=== PATIENT | male | born 1980 | race Two or more races ===

== ENCOUNTER 2017-03-03 20:29 | Emergency (ER) | payer MEDICAID ==
[~2017-03-03] VITALS: Ht 180.3 cm; Wt 120.2 kg
[2017-03-03 20:39] VITALS: Ht 180.3 cm; Wt 120.2 kg
[2017-03-04 02:27] LABS: BASOPHIL % 0.2 % (0-2); PLATELET COUNT 207 x10^3mcL (130-400); RED CELL DISTRIBUTION WIDTH 13.1 % (11.5-14.5)
[2017-03-04 02:34] LABS: CALCIUM 8.3 mg/dL (8.5-10.1); CARBON DIOXIDE 28.1 mmol/L (21-32); CHLORIDE SERUM 102 mmol/L (98-107); CREATININE SERUM 0.8 mg/dL (0.7-1.3); GFR1 > 60 mL/min; GLUCOSE SERUM 115 mg/dL (74-106); POTASSIUM SERUM 4.4 mmol/L (3.5-5.1); SODIUM SERUM 139 mmol/L (136-145)
[2017-03-04 02:39] LABS: ALKALINE PHOSPHATASE 83 U/L (46-116); ALT/SGPT 30 U/L (16-63); AST/SGOT 11 U/L (15-37); BILIRUBIN TOTAL 0.28 mg/dL (0.20-1.00); TOTAL PROTEIN, SERUM 7.4 g/dL (6.4-8.2)
[2017-03-04 03:37] VITALS: BP 122/82
== END 2017-03-04 03:37 | disposition home or self-care (01) ==
LOC: ED 20:29
PROVIDERS: Emergency Medicine
DX: S16.1XXA Strain of muscle, fascia and tendon at neck level, initial encounter (principal); S46.911A Strain of unspecified muscle, fascia and tendon at shoulder and upper arm level, right arm, initial encounter; R07.89 Other chest pain; X58.XXXA Exposure to other specified factors, initial encounter; Y93.89 Activity, other specified; Y92.89 Other specified places as the place of occurrence of the external cause; Y99.8 Other external cause status
CPT/HCPCS: 36415; J1170; J1885; Q0162

== ENCOUNTER 2018-04-16 01:49 | Emergency (ER) | payer BC ==
[~2018-04-16] VITALS: Ht 182.9 cm; Wt 104.3 kg
[2018-04-16 01:50] VITALS: Ht 182.9 cm; Wt 104.3 kg
[2018-04-16 02:35] LABS: CALCIUM 8.5 mg/dL (8.5-10.1); CARBON DIOXIDE 29.3 mmol/L (21-32); CHLORIDE SERUM 101 mmol/L (98-107); CREATININE SERUM 1.1 mg/dL (0.7-1.3); GFR1 > 60 mL/min; GLUCOSE SERUM 143 mg/dL (74-106); POTASSIUM SERUM 3.6 mmol/L (3.5-5.1); SODIUM SERUM 140 mmol/L (136-145)
[2018-04-16 02:40] LABS: ALKALINE PHOSPHATASE 73 U/L (46-116); ALT/SGPT 28 U/L (16-63); AST/SGOT 15 U/L (15-37); LIPASE 79 IU/L (73-393); TOTAL PROTEIN, SERUM 7.7 g/dL (6.4-8.2)
[2018-04-16 02:49] LABS: PLATELET COUNT 236 x10^3mcL (130-400); RED CELL DISTRIBUTION WIDTH 12.9 % (11.5-14.5)
[2018-04-16 02:50] LABS: BASOPHIL % 0 % (0-2)
[2018-04-16 05:06] VITALS: BP 123/72
== END 2018-04-16 05:02 | disposition home or self-care (01) ==
LOC: ED 01:49
PROVIDERS: Emergency Medicine
DX: N20.1 Calculus of ureter (principal)
CPT/HCPCS: J2270; J2405; J7030